=== PATIENT | male | born 1995 | race Caucasian/White ===

== ENCOUNTER 2018-11-22 02:07 | Emergency (ER) | payer SELFPAY | END 2018-11-22 03:39 | disposition home or self-care (01) | LOC: ERS 02:07 | DX: F10.129 Alcohol abuse with intoxication, unspecified (principal); F17.210 Nicotine dependence, cigarettes, uncomplicated | CPT/HCPCS: 99284 ==

== ENCOUNTER 2018-12-19 02:54 | Emergency (ER) | payer SELFPAY | END 2018-12-19 04:27 | LOC: ERS 02:54 | DX: F10.129 Alcohol abuse with intoxication, unspecified (principal) | CPT/HCPCS: 99283 ==